=== PATIENT | female | born 1930 | race Caucasian/White ===

== ENCOUNTER → 2017-09-10 | Outpatient (CLI) | payer MEDICARE, OTHER ==
[~2017-09-10] MED LIST: ASPIRIN 81M81 MG/TA2; LIPITOR20 MG; MACROBID 1100 MG/CAP PO; MEDROL 4MG DOSPA4 MG PO; MICROZIDE12.5 MG; NORCO 325 MG-51 TAB PO; PRINIVIL40 MG; TOPROL XL100 MG
== END ==
LOC: MHCPAIN 14:46
DX: G89.29 Other chronic pain (principal); M47.817 Spondylosis without myelopathy or radiculopathy, lumbosacral region; M54.16 Radiculopathy, lumbar region; M48.061 Spinal stenosis, lumbar region without neurogenic claudication
CPT/HCPCS: G0463

== ENCOUNTER → 2017-09-26 | Outpatient (CLI) | payer MEDICARE, OTHER | LOC: MHCPAIN 14:19 | DX: M47.27 Other spondylosis with radiculopathy, lumbosacral region (principal); M41.86 Other forms of scoliosis, lumbar region ==

== ENCOUNTER → 2017-10-15 | Outpatient (CLI) | payer MEDICARE, OTHER | LOC: MHCPAIN 14:39 | DX: G89.29 Other chronic pain (principal); M47.27 Other spondylosis with radiculopathy, lumbosacral region; M48.061 Spinal stenosis, lumbar region without neurogenic claudication; M53.3 Sacrococcygeal disorders, not elsewhere classified; M41.9 Scoliosis, unspecified; Z87.891 Personal history of nicotine dependence | CPT/HCPCS: G0463 ==

== ENCOUNTER → 2017-11-01 | Outpatient (CLI) | payer MEDICARE, OTHER | LOC: MHCPAIN 12:36 | DX: M47.817 Spondylosis without myelopathy or radiculopathy, lumbosacral region (principal) | CPT/HCPCS: J1040; Q9967 ==

== ENCOUNTER 2017-12-03 09:42 | Emergency (ER) | payer MEDICARE, OTHER ==
[~2017-12-03] VITALS: Ht 162.6 cm; Wt 81.4 kg
[2017-12-03] MEDS ORDERED: VITAMIN D31000 I1 PO (10:15)
[2017-12-03] MEDS ORDERED: MASON NATURAL1200 MG PO (10:18)
[2017-12-03] MEDS ORDERED: AMBIEN CR 12.12.5 MG PO (10:19)
[2017-12-03] MEDS ORDERED: NORCO 325 MG-51 TAB PO (11:04)
[2017-12-03 11:38] VITALS: BP 131/85; PULSE 76
== END 2017-12-03 11:38 | disposition home or self-care (01) ==
LOC: COL.ER 09:42
DX: S80.02XA Contusion of left knee, initial encounter (principal); M25.462 Effusion, left knee; I10 Essential (primary) hypertension; Z79.82 Long term (current) use of aspirin; W01.0XXA Fall on same level from slipping, tripping and stumbling without subsequent striking against object, initial encounter

== ENCOUNTER → 2017-12-10 | Outpatient (CLI) | payer MEDICARE, OTHER ==
[~2017-12-10] MED LIST changes: +AMBIEN CR 12.12.5 MG PO; +MASON NATURAL1200 MG PO; +VITAMIN D31000 I1 PO
== END ==
LOC: MHCPAIN 13:06
DX: G89.29 Other chronic pain (principal); M47.817 Spondylosis without myelopathy or radiculopathy, lumbosacral region; M54.16 Radiculopathy, lumbar region; M53.3 Sacrococcygeal disorders, not elsewhere classified; M48.061 Spinal stenosis, lumbar region without neurogenic claudication; M41.9 Scoliosis, unspecified
CPT/HCPCS: G0463